=== PATIENT | female | born 1990 | race Caucasian/White ===

== ENCOUNTER 2021-07-24 02:36 | Outpatient (CLI) | payer BC, SELFPAY ==
[2021-07-24 13:12] LABS: HCT 38.3 % (36.0-46.0); HGB 12.5 g/dL (11.2-15.7); MCH 29.9 pg (27.0-33.0); MCHC 32.6 % (32.0-36.0); MCV 91.6 fL (80-95); MPV 9.5 fL (8.0-11.0); Platelet Count 251 10^3/uL (130-400); RBC 4.18 10^6/uL (3.93-5.22); RDW 12.3 % (11.7-14.6); RDW-SD 41.1 fL; WBC 7.24 10^3/uL (4.4-10.8)
[2021-07-24 14:13] LABS: ALT 19 U/L (14-59); AST 14 U/L (15-37); Alkaline Phosphatase 34 U/L (46-116); Anion Gap 9.3 mmol/L (3-11); BUN 13 mg/dL (7-18); Bilirubin, Total 0.2 mg/dL (0.2-1.0); CO2 25.7 mmol/L (21.0-32.0); CREATININE 0.7 mg/dL (0.55-1.02); Chloride 102 mmol/L (98-107); Glucose 95 mg/dL (74-106); Potassium 4.2 mmol/L (3.5-5.1); Sodium 137 mmol/L (136-145); Total Protein 7.2 g/dL (6.4-8.2)
== END 2021-07-24 02:37 | disposition home or self-care (01) ==
LOC: LBO 02:37
PROVIDERS: PCP Nurse Practitioner; Referring Provider Nurse Practitioner; Visit Provider Nurse Practitioner
DX: E28.2 Polycystic ovarian syndrome (principal); F41.9 Anxiety disorder, unspecified
CPT/HCPCS: 36415; 80053; 85027

== ENCOUNTER 2021-08-09 07:39 | Outpatient (CLI) | payer BC, SELFPAY ==
--- NOTE | 2021-08-15 12:26 | W.PM.PROGNOT ---
Date of Service Date of service: 08/09/21 Time of Service: 08:25 Assessment and Plan Assessment and plan (1) Miscarriage, threatened, early : Status: Acute Assessment and plan: 1. hcg and type and screen to be drawn 2. patient will be notified of results and plan for follow up will be made from office. Subjective Subjective Interval history since last seen: Jennyfer presents to per Eli LAMB plan with patient for lab draw as she is experiencing spotting in early and we do not have record of type and screen to see if Rhogam would be indicated. Patient is having no bleeding this morning but has been having spotting for a couple of days. She agrees to hcg and type and screen and will then be notified if Rhogam is needed. She is anxious that she might have miscarriage as she has had one in past. Exam Narrative Exam Narrative: Patient is well nourished, adult female in no acute distress. Normal respiratory effort, speaks in clear sentences and is able to understand our conversation and ask appropriate questions. No further physical exam is done today. Eyes General: appearance normal, both eyes and all related structures Neck Neck: normal visual inspection Resp Effort & Inspection: normal respiratory effort and able to speak in complete sentences Psych Appearance: grossly normal and well kempt Mental Status: mental status grossly normal Speech and Movement: speech and movement normal Mood: congruent mood Affect: normal affect Attitude: cooperative Thought Process: normal Thought Content: normal Insight: insight good Judgment: judgment good
== END 2021-08-09 07:40 | disposition home or self-care (01) ==
PROVIDERS: Advanced Practice Midwife; PCP Nurse Practitioner; Visit Provider Advanced Practice Midwife
DX: O20.0 Threatened abortion (principal)
CPT/HCPCS: 36415; 86850; 86900; 86901; 84702

== ENCOUNTER 2021-08-14 10:28 | Outpatient (REF) | payer BC, SELFPAY | END 2021-08-14 10:29 | disposition home or self-care (01) | LOC: LBN 10:28 | PROVIDERS: PCP Nurse Practitioner; Visit Provider Advanced Practice Midwife | DX: O26.851 Spotting complicating pregnancy, first trimester (principal); Z3A.01 Less than 8 weeks gestation of pregnancy | CPT/HCPCS: 87480; 87510; 87660 ==

== ENCOUNTER 2021-09-04 02:10 | Outpatient (CLI) | payer BC, SELFPAY ==
[2021-09-04 14:51] LABS: Abs Immature Grans 0.02 10^3/uL (0.0-0.06); Absolute Basophil Count 0.02 10^3/uL (0.0-0.2); Absolute Eosinophil Count 0.06 10^3/uL (0.0-0.7); Absolute Lymphocyte Count 1.93 10^3/uL (1.2-3.4); Absolute Monocyte Count 0.46 10^3/uL (0.1-0.8); Absolute Neutrophil Count 5.03 10^3/uL (1.2-6.7); Basophils % 0.3; Eosinophils % 0.8; HCT 35.9 % (36.0-46.0); Immature Grans % 0.3; Lymphocytes % 25.7; MCH 30.5 pg (27.0-33.0); MCHC 33.4 % (32.0-36.0); MCV 91 fL (80-95); MPV 9.4 fL (8.0-11.0); Monocytes % 6.1; Neutrophils % 66.8; Platelet Count 243 10^3/uL (130-400); RBC 3.94 10^6/uL (3.93-5.22); RDW 13.2 % (11.7-14.6); RDW-SD 43.6 fL; WBC 7.52 10^3/uL (4.4-10.8)
[2021-09-04 16:23] LABS: HCG Quant, Pregnancy 81755 mIU/mL (1-3)
[2021-09-05 09:06] LABS: Hepatitis B Surface Ag Negative (Negative)
[2021-09-05 09:39] LABS: Hepatitis C Ab w Rflx HCV PCR Negative (Negative)
[2021-09-05 10:59] LABS: Varicella IgG Antibody Positive (See Note)
[2021-09-05 11:05] LABS: Rubella IgG Ab (UVM) Positive (See Note)
[2021-09-05 11:58] LABS: HIV-1/2 Ag & Ab Screen Negative (Negative)
[2021-09-06 14:10] LABS: Syphilis IgG w/Reflex Nonreactive (Nonreactive)
== END 2021-09-04 02:11 | disposition home or self-care (01) ==
LOC: LBO 02:10
PROVIDERS: Advanced Practice Midwife; PCP Nurse Practitioner; Visit Provider Advanced Practice Midwife
DX: Z34.91 Encounter for supervision of normal pregnancy, unspecified, first trimester (principal); Z3A.11 11 weeks gestation of pregnancy
CPT/HCPCS: 36415; 86787; 86803; 86850; 86900; 86901; 87340; 87389; 84702; 85025; 86762; 86780

== ENCOUNTER 2021-09-04 16:36 | Outpatient (REF) | payer BC, SELFPAY ==
[2021-09-04 16:40] LABS: *AMPHETAMINES SCREEN URINE Negative (Negative); *BARBITURATES SCREEN URINE Negative (Negative); *BENZODIAZEPINES SCREEN URINE Negative (Negative); Cannabinoids THC Negative (Negative); Cocaine Screen,Urine Negative (Negative); METHADONE URINE SCREEN Negative (Negative); OPIATES URINE SCREEN Negative (Negative)
[2021-09-04 16:48] LABS: Tricyclic Antidepressants Negative (Negative)
[2021-09-07 16:39] LABS: Chlamydia Result Negative (Negative); GC Result Negative (Negative)
[2021-09-08 11:52] LABS: Buprenorphine Negative ng/mL (Cutoff: 5.0); Norbuprenorphine Negative ng/mL (Cutoff: 2.5)
== END 2021-09-04 16:37 | disposition home or self-care (01) ==
LOC: LBN 16:36
PROVIDERS: PCP Nurse Practitioner; Visit Provider Advanced Practice Midwife
DX: Z34.91 Encounter for supervision of normal pregnancy, unspecified, first trimester (principal); Z3A.09 9 weeks gestation of pregnancy
CPT/HCPCS: 80307; 87491; 87591; 87086

== ENCOUNTER 2021-11-25 07:35 | Observation (INO) | payer BC, SELFPAY ==
[2021-11-25] VITALS (11 sets, daily range): BP systolic 107–119; BP diastolic 57–68; PULSE 75–96; RESP 16–18; TEMP 36.8–37.1; O2SAT 93–100
[2021-11-25] MEDS: Normal Saline Flush 10 ML SYR IVP (08:20)
--- NOTE | 2021-11-25 08:29 | W.PM.OBHPL1 ---
Date of service: 11/25/21 Time of Service: 08:29 Assessment and Plan Assessment and plan (1) Velamentous insertion of umbilical cord: Status: Acute Assessment and plan: Documented on recent ultrasound at [facility]. (2) Previous delivery affecting , antepartum: Status: Acute (3) Bicornuate uterus: Status: Acute (4) Antepartum bleeding, second trimester: Status: Acute Assessment and plan: Single bleeding episode earlier this morning. Currently stable with small amount of dark blood tinged mucus from her cervix. No bright red blood noted on sterile speculum exam. The plan is to admit the patient for observation obtain CBC type and screen. Addendum H/H 10.9/32.9 A+. OB-HPI Labor/Delivery History of Present Illness Reason for Visit: Vaginal Bleeding at 21 wks Chief Complaint: Vaginal Bleeding (Patient awoke with painless vaginal bleeding on underclothes and on bed linens) , Associated Signs and Symptoms of Vaginal Bleeding: Recent intercourse or trauma. SADE Calculator Estimated Delivery Date Method Current WG Current Estimate 04/03/22 LMP (Certain) 21w 5d Other Estimates 04/03/22 Ultrasound #1 21w 5d 04/05/22 Ultrasound #2 21w 3d History of Present Expected Delivery Route/Plan Desires TOLAC - CNM FOB/ - Chad Walters (2nd child together) Specific Issues/Plan 1. First trimester bleeding- normal US at 6 weeks, Repeated @ 8 wk: nml 2. Bicornuate uterus- Level 2 US at [facility], sched'ed for 11/13/21 3. Left ovarian cyst-complex- asymptomatic, 3a. Hemorrhagic cyst identified at DI at 9+6 weeks. Experiencing mild discomfort 4. Hx of C/S at 33 weeks after PPROM- [facility] consult sched'ed for 11/13 4a. Desires TOLAC/; plan for 30 wk consent appt with 4b. Review operative report for NAI [place] 5. Painless mass on right breast lump, occurred when nursing first child, resolved 10/30/21 6. Hx of PCOS - metformin 500 mg BID in first trimester, then discontinued 7. Anxiety - Taking sertraline 50 mg QD - stopped Xanax with 7a. Offer behavioral health referral 8. 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 Placenta R lateral, posterior. Velamentous cord origin on uterine septum. Nl anatomy, Nl growth Review of Systems Constitutional Constitutional: Reports system reviewed and no additional complaints, except as documented PFSH All Active Problems (Updated 11/25/21 @ 08:49 by Maisha Blanchard MD) Antepartum bleeding, second trimester (Acute) Velamentous insertion of umbilical cord (Acute) Previous delivery affecting , antepartum (Acute) (Acute) PCOS (polycystic ovarian syndrome) (Acute) Anxiety (Chronic) Bicornuate uterus (Acute) Medical History (Updated 11/25/21 @ 08:49 by Maisha Blanchard MD) Breast mass R sided, nonpalpable s/p stopping , occurred when nursing first child, now recurred. Constipation History of miscarriage History of premature rupture of membranes Hypokalemia Miscarriage, threatened, early Surgical History (Updated 10/30/21 @ 13:11 by Christiana Davenport) H/O section (~02/2019) H/O hand surgery left hand History of wisdom tooth extraction Family History (Updated 07/18/21 @ 08:49 by Mercedes Traore RN) Paternal Grandfather Cancer lung Maternal Grandmother Cancer lung Lemierre syndrome Maternal Aunt Colon cancer Paternal Grandfather Lung cancer Paternal Grandmother Heart disease Mother Anxiety Father Anxiety Prediabetes Hypertension Social History (Updated 11/25/21 @ 08:48 by Maisha Blanchard MD) Smoking/Tobacco Use Status: Never Second Hand Exposure: No Smoking risk assessment performed?: Yes Alcohol Intake: current Alcohol Intake frequency: holidays/special occasions only Drug use: Never Substance use type: does not use Adopted: No Caregiver/Support person: No Foster care: No Household members: spouse, children and other Details: Shanell Stack Housing: house Number of Children: 1 number of grandchildren: 0 Communication Needs: None Education Level: college Details: Bachelor's Degree-nutrition [employer] Do you need help understanding health information?: Never 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/ Pets and animals: No Sexually active: Yes Do you think of yourself as: straight/heterosexual Current gender identity: female What is your relationship status?: How often do you talk on the phone with friends or family?: twice per week How often do you get together with friends or relatives?: never Do you belong to any clubs or organized social groups?: yes Panel score (0-1 are the most socially isolated patients): 2 What type of physical activity do you participate in: weight lifting and other Details: Stairs Duration: < 15 minutes/day Frequency: 3-4 times per week Tracy/Gnosticist: Shinto Special tracy needs: Yes (No control. Lise Ovulation Method (NFP)) Seatbelt use: always Helmet use: Yes Helmet use: always Drive intox or ride w/intox fuel oil truck driver: No Do you feel safe at home: No Do you feel safe in your relationship?: No Additional Social history: Patient and relocated from [place] secondary to housing costs. They purchased a home. She works remotely from home. He has [employer] channel. History History 2 Para 1 Hx # Term Pregnancies 0 Multiple births 0 Hx # Pregnancies 1 Ectopic pregnancies 0 AB induced 0 Hx Number of Living Children 1 AB spontaneous 1 Past Pregnancies Del. Date GA/Weeks # Preg Succ Route Wgt Sex Labor Lgth Anesthesia Location Prov Compl 02/04/19 33 No 3 lb 3 oz Male [place], [place] 03/13/21 6 Delivery Date: 02/04/19 Last Updated by: Libby Lawrence CNM PPROM, PTL, breech. separation of membranes from uterine lining Delivery Date: 03/13/21 Last Updated by: Rose Mariscal NP SAB Meds Allergies and Home Medications Allergies Allergy/AdvReac Type Severity Reaction Status Date / Time tazarotene [From Tazorac] Allergy Verified 10/30/21 12:39 Home Medications Medication Instructions Recorded Confirmed Type prenat.vits,eddie,bht-gnfv-rcwfb 1 tab PO DAILY 06/18/21 11/25/21 History sertraline 50 mg tablet 50 mg PO DAILY #90 tabs 07/18/21 11/25/21 Rx polyethylene glycol 3350 17 17 g PO DAILY #119 grams 10/02/21 11/25/21 Rx gram/dose oral powder (Miralax) Exam Physical Exam Vital signs: Pulse BP Pulse Ox 80 119/67 100 11/25/21 08:05 11/25/21 07:53 11/25/21 08:05 Vital Signs Reviewed: Yes Constitutional Constitutional: no acute distress Detailed Labor and Delivery Exam Dilation: 0 Effacement (%): 0 station: -3 Position: Other (variable) Cervix position: mid (displaced to R ) Consistency: firm Krishnamurthy Score: Cervical Points Exam 0 1 2 3 Dilation Closed 1-2cm 3-4 cm 5-6cm Effacement 0-30% 40-50% 60-70% 80% Consistency Firm Medium Soft Station -3 -2 -1,0 +1,+2 Position Posterior Mid Anterior KRISHNAMURTHY Score(Cervical Ripeness Score): 2 Amniotic Membrane Status: Intact ROM Plus: Not Done Monitor Mode: External Contraction Frequency(min): none Fetus A Heart Rate Baseline: 150 Presentation: Other (variable) Assessment Note: heart tones evaluated by ultrasound Doppler on admission. Bedside ultrasound performed confirming viability cervix is long closed. Subjectively adequate amniotic fluid Chest/Brest/Axilla Exam Chest Exam: Not Done Breast Exam Breast Exam: Not Done Respiratory Exam Respiratory Exam: Normal Cardiovascular Exam Cardiovascular Exam: Normal Abdominal Exam Abdominal Exam: Normal (Soft, gravid, nontender) Rectal Exam Rectal Exam: Not Done Detailed Exam Patient deferred: external exam External: Present normal urethra appearance Perineum Description: Normal (Blood tinged mucus on perineum) Comments: Sterile speculum exam performed. Kalida/brown blood-tinged mucus present at the cervical os. Bedside ultrasound performed no evidence of placental abruption. Viable IUP with variable presentation Extremities Exam Extremities Exam: Normal Back/Spine/Pelvis Exam Back Exam: Normal Skin Exam Skin Exam: Normal Neurological Exam Neurological Exam: Normal Psychiatric Exam Psychiatric Exam: Normal Results Results Group Beta Strep: Not Done Risk Assessment Risk for Shoulder Dystocia Historical/Initial OB: NEGATIVE FOR: Pelvic Abnormality, Pre- BMI>30, Previous Shoulder Dystocia or Previous Macrosomia Risk for Pre-Eclampsia Yes, if one or more: NEGATIVE FOR: Hx Pre-E/Gest HTN, Chronic HTN, Multiple Gestation, Pre-gestational DM, Renal Disease, Systemic Lupus or APA Syndrome Yes, if 2 or more: NEGATIVE FOR: Nulliparity, Age>= 35 yrs, >10yr btwn pregnancies, BMI>30, ethinicty, Mother/Sister w/ Pre-E or Previous IUGR Risk for Post- Hemorrhage Initial: NEGATIVE FOR: Multiple Gestation, Previous PPH, Known Clotting Deficiency, Grand Multiparity or Anticoagulation Risks Reviewed Risks Reviewed Upon Admission: Yes
[2021-11-25] MEDS: Prenatal Multivitamin w/CA,FE TAB 1 TAB PO (08:41)
[2021-11-25] MEDS: Sertraline 50 MG TAB PO (08:41)
[2021-11-25 08:46] LABS: HCT 32.9 % (36.0-46.0); HGB 10.9 g/dL (11.2-15.7); MCH 31.4 pg (27.0-33.0); MCHC 33.1 % (32.0-36.0); MCV 95 fL (80-95); MPV 9.2 fL (8.0-11.0); Platelet Count 247 10^3/uL (130-400); RBC 3.47 10^6/uL (3.93-5.22); RDW 13.2 % (11.7-14.6); RDW-SD 45.8 fL; WBC 10.78 10^3/uL (4.4-10.8)
[2021-11-25 08:57] LABS: Source Nasal/Nares
[2021-11-25 09:02] LABS: ALT 16 U/L (14-59); AST 14 U/L (15-37); Albumin 2.6 g/dL (3.4-5.0); Alkaline Phosphatase 36 U/L (46-116); Anion Gap 7.3 mmol/L (3-11); BUN 8 mg/dL (7-18); Bilirubin, Total 0.2 mg/dL (0.2-1.0); CO2 26.7 mmol/L (21.0-32.0); CREATININE 0.5 mg/dL (0.55-1.02); Calcium 8.3 mg/dL (8.5-10.1); Chloride 104 mmol/L (98-107); Glucose 85 mg/dL (74-106); Potassium 3.8 mmol/L (3.5-5.1); Sodium 138 mmol/L (136-145); Total Protein 6.4 g/dL (6.4-8.2)
[2021-11-25 09:49] LABS: COVID-19 PCR Negative (Negative)
[2021-11-26 02:53] VITALS: BP 105/65; BP 105/75; PULSE 67; RESP 18
[2021-11-26 07:15] VITALS: BP 108/67; PULSE 77; RESP 141; TEMP 36.9
[2021-11-26] MEDS: Sertraline 50 MG TAB PO (08:47)
[2021-11-26] MEDS: Prenatal Multivitamin w/CA,FE TAB 1 TAB PO (08:48)
--- NOTE | 2021-11-26 09:19 | PGE_ITS ---
Date of Service Date of service: 11/26/21 Time of Service: 09:19 Assessment and Plan Assessment and plan (1) Antepartum bleeding, second trimester: Status: Acute Assessment and plan: I have placed a call into [facility] for advice as to plan of care. (2) Velamentous insertion of umbilical cord: Status: Acute Exam Narrative Exam Narrative: Pt reports no cramping during the night. Had one clot last evening, flushed into toilet. 4 randa-pads used during the night. Const General: comfortable Nutritional Appearance: average body habitus Orientation: alert, awake and oriented x3 Resp Effort & Inspection: normal respiratory effort GI Inspection: normal to inspection Palpation: soft, no hepatosplenomegaly, nontender and other (gravid.) General: deferred (Intermittent FHR auscultation during the night: FHR 140 range.) Skin General skin exam: no rashes or lesions noted Extrem General: normal to inspection Objective Last Vital Signs Temp 98.4 F 11/26/21 07:15 Pulse 77 11/26/21 07:15 Resp 141 H 11/26/21 07:15 BP 108/67 11/26/21 07:15 Pulse Ox 93 11/25/21 14:53 Laboratory Results - last 24 hr 11/25/21 11/25/21 08:38 08:45 SARS-CoV-2 (PCR) Negative Patient ABO/Rh A Positive Antibody Screen NEGATIVE Reviewed Pertinent PMH: Yes Objective Narrative Objective Narrative: Bleeding during the night. While not copious it remains constant with 4 unsaturated pads changed during the night
--- NOTE | 2021-11-26 11:06 | W.PM.PROGNOT ---
Date of Service Date of service: 11/26/21 Time of Service: 11:06 Assessment and Plan Assessment and plan (1) Antepartum bleeding, second trimester: Status: Acute Assessment and plan: After discussing the patient's bleeding this morning I called [facility] maternal- medicine department spoke with Dr. Clemons regarding pt's bleeding We discussed the fact that this fetus is previable and if she were to become a critical patient we would proceed with delivery knowing that the fetus would not survive at 21w 5d EGA. I reviewed the [facility] images with Dr. Schrader. The placenta is not low-lying and is not involvement with the uterine septum. The velamentous umbilical cord is present and is proximity to the uterine septum/wall. There arose the question of there being a uterine synechiae in proximity to the umbilcal cord. Plan is to proceed with expectant management at this time. Pt was counseled by me regarding the plan going forward. Will begin supplemental daily iron and continue pad counts. She will be discharged to home tomorrow if stable and followed on a weekly basis or as needed in the event of increased uterine bleeding. (2) Velamentous insertion of umbilical cord: Status: Acute Objective Last Vital Signs Temp 98.4 F 11/26/21 07:15 Pulse 77 11/26/21 07:15 Resp 141 H 11/26/21 07:15 BP 108/67 11/26/21 07:15 Pulse Ox 93 11/25/21 14:53
[2021-11-26 16:05] VITALS: BP 106/69; PULSE 90; RESP 18; TEMP 36.7; O2SAT 98
[2021-11-26 19:30] VITALS: BP 100/59; PULSE 67; RESP 18; TEMP 36.9
[2021-11-27 01:52] VITALS: BP 108/65; PULSE 69; RESP 18
[2021-11-27 07:45] VITALS: BP 109/72; PULSE 85; RESP 14; TEMP 37
--- NOTE | 2021-11-27 08:16 | DSE_ITS ---
Date of service: 11/27/21 Time of Service: 08:16 DS: Diagnosis Discharge Diagnosis (1) Antepartum bleeding, second trimester: Status: Acute (2) Velamentous insertion of umbilical cord: Status: Acute Discharge Plan Disposition Patient Disposition: HOME Condition: Fair Discharge Details Reason For Visit: Vaginal Bleeding at 21 wks Admit Date/Time: 11/25/21 07:35 Admit Provider: Maisha Blanchard Attending Provider: Maisha Blanchard Primary Care Provider: Anaid Reynoso [facility] Course Hospital Course: Patient is a 31-year-old 2 para 1 female admitted with vaginal bleeding at 21W 4D EGA Home Meds and New Rx's Prescriptions: No Action sertraline 50 mg tablet 50 mg PO DAILY Qty: 90 3RF polyethylene glycol 3350 [Miralax] 17 gram/dose powder 17 g PO DAILY Qty: 119 5RF prenat.vits,eddie,zxl-gwlp-oqvja Tablet 1 tab PO DAILY Discharge Instructions Additional Instructions: You may resume your usual activities. I recommended no sexual intercourse for the time being. Begin taking 1 dose of iron daily. I will prescribe a easily swallowed or liquid iron supplement that she can sheepskin pickler at your pharmacy. An appointment for an MD visit [facility]. Using cancel your supervisor nuclear medicine appointment for today. You will continue to have bleeding and I think that the amount of bleeding that you have had recently is an acceptable level for you to stay home with now that we know more about where your placenta is. If you have cramping or pain please call the MD on-call at any time. Activity:: No intercourse Equipment/Supplies:: No Equipment Needed Diet:: As Tolerated Discharge Orders Discharge Orders: Discharge Order (Routine); Ordered 11/27/21 Ordered By: Maisha Blanchard DS: Summary Time Spent with Patient providing and/or coordinating discharge services: Less than 30 minutes Status at Discharge Functional status at discharge: independent ambulation Overall status at discharge: patient is back to baseline Mental Status: mental status grossly normal Speech and Movement: speech and movement normal Mood: congruent mood Affect: normal affect Exam Narrative Exam Narrative: Pt reports no cramping during the night. Had one clot last evening, flushed into toilet. 4 randa-pads used during the night. Const General: comfortable Nutritional Appearance: average body habitus Orientation: alert, awake and oriented x3 Resp Effort & Inspection: normal respiratory effort GI Inspection: normal to inspection Palpation: soft, no hepatosplenomegaly, nontender and other (gravid.) General: deferred (Intermittent FHR auscultation during the night: FHR 140 range.) Skin General skin exam: no rashes or lesions noted Extrem General: normal to inspection Psych Mental Status: mental status grossly normal Speech and Movement: speech and movement normal Mood: congruent mood Affect: normal affect DS: Data Vitals/I&O Vitals and I&O: Vital Signs Temperature 98.4 F 11/26/21 19:30 Pulse 69 11/27/21 01:52 Pulse Rhythm Regular 11/26/21 19:30 Respiratory Rate 18 11/27/21 01:52 Blood Pressure 108/65 11/27/21 01:52 Blood Pressure Mean 79 11/27/21 01:52 Pulse Oximetry 98 11/26/21 16:05 Comment 11/25/21 07:49 Intake & Output 11/26/21 11/26/21 11/27/21 11:59 23:59 11:59 Intake Total 740 / 1340 600 / 1340 550 / 550 Output Total 800 / 3005 2205 / 3005 850 / 850 Balance -60 / -1665 -1605 / -1665 -300 / -300 Intake: Oral 740 / 1340 600 / 1340 550 / 550 Output: Urine 800 / 3000 2200 / 3000 850 / 850 Blood 5 / 5 Other: Urine Color Yellow Pale PFSH All Active Problems (Updated 11/25/21 @ 08:49 by Maisha Blanchard MD) Antepartum bleeding, second trimester (Acute) Velamentous insertion of umbilical cord (Acute) Previous delivery affecting , antepartum (Acute) (Acute) PCOS (polycystic ovarian syndrome) (Acute) Anxiety (Chronic) Bicornuate uterus (Acute) Medical History (Updated 11/25/21 @ 08:49 by Maisha Blanchard MD) Breast mass R sided, nonpalpable s/p stopping , occurred when nursing first child, now recurred. Constipation History of miscarriage History of premature rupture of membranes Hypokalemia Miscarriage, threatened, early Surgical History (Updated 10/30/21 @ 13:11 by Christiana Davenport) H/O section (~02/2019) H/O hand surgery left hand History of wisdom tooth extraction Family History (Updated 07/18/21 @ 08:49 by Mercedes Traore RN) Paternal Grandfather Cancer lung Maternal Grandmother Cancer lung Lemierre syndrome Maternal Aunt Colon cancer Paternal Grandfather Lung cancer Paternal Grandmother Heart disease Mother Anxiety Father Anxiety Prediabetes Hypertension Social History (Updated 11/25/21 @ 08:48 by Maisha Blanchard MD) Smoking/Tobacco Use Status: Never Second Hand Exposure: No Smoking risk assessment performed?: Yes Alcohol Intake: current Alcohol Intake frequency: holidays/special occasions only Drug use: Never Substance use type: does not use Adopted: No Caregiver/Support person: No Foster care: No Household members: spouse, children and other Details: Shanell Stack Housing: house Number of Children: 1 number of grandchildren: 0 Communication Needs: None Education Level: college Details: Bachelor's Degree-nutrition [employer] Do you need help understanding health information?: Never 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/ Pets and animals: No Sexually active: Yes Do you think of yourself as: straight/heterosexual Current gender identity: female What is your relationship status?: How often do you talk on the phone with friends or family?: twice per week How often do you get together with friends or relatives?: never Do you belong to any clubs or organized social groups?: yes Panel score (0-1 are the most socially isolated patients): 2 What type of physical activity do you participate in: weight lifting and other Details: Stairs Duration: < 15 minutes/day Frequency: 3-4 times per week Tracy/Sikh: Moravian Special tracy needs: Yes (No control. Herrick Ovulation Method (NFP)) Seatbelt use: always Helmet use: Yes Helmet use: always Drive intox or ride w/intox automobile drivers: No Do you feel safe at home: No Do you feel safe in your relationship?: No Additional Social history: Patient and relocated from [place] secondary to housing costs. They purchased a home. She works remotely from home. He has [employer] channel. History History 2 Para 1 Hx # Term Pregnancies 0 Multiple births 0 Hx # Pregnancies 1 Ectopic pregnancies 0 AB induced 0 Hx Number of Living Children 1 AB spontaneous 1 Past Pregnancies Del. Date GA/Weeks # Preg Succ Route Wgt Sex Labor Lgth Anesth esia Location Prov Complic 02/04/19 33 No 3 lb 3 oz Male [place], [place] 03/13/21 6 Delivery Date: 02/04/19 Last Updated by: Libby Lawrence CNM PPROM, PTL, breech. separation of membranes from uterine lining Delivery Date: 03/13/21 Last Updated by: Rose Mariscal NP SAB
== END 2021-11-27 09:05 | disposition home or self-care (01) ==
LOC: OBS 15:26
PROVIDERS: Admitting Provider Obstetrics & Gynecology Gynecology; PCP Nurse Practitioner; Visit Provider Obstetrics & Gynecology Gynecology
DX: O46.92 Antepartum hemorrhage, unspecified, second trimester (principal); O43.122 Velamentous insertion of umbilical cord, second trimester; O34.212 Maternal care for vertical scar from previous cesarean delivery; Q51.3 Bicornate uterus; Z3A.21 21 weeks gestation of pregnancy; O99.282 Endocrine, nutritional and metabolic diseases complicating pregnancy, second trimester; E28.2 Polycystic ovarian syndrome; O99.342 Other mental disorders complicating pregnancy, second trimester; O34.219 Maternal care for unspecified type scar from previous cesarean delivery; N85.8 Other specified noninflammatory disorders of uterus
CPT/HCPCS: 36415; 80053; 85027; 86850; 86900; 86901; 87635; G0378

== ENCOUNTER 2021-12-17 08:18 | Observation (INO) | payer BC, SELFPAY ==
[2021-12-17 06:39] VITALS: BP 116/69; PULSE 84; RESP 18; TEMP 36.6
[2021-12-17 07:21] VITALS: BP 108/64; PULSE 83
[2021-12-17 07:36] VITALS: BP 108/64; PULSE 83; RESP 12; TEMP 36.8
--- NOTE | 2021-12-17 08:05 | HPE_ITS ---
Date of service: 12/17/21 Time of Service: 08:05 Assessment and Plan Assessment and plan (1) Antepartum bleeding, second trimester: Status: Acute Assessment and plan: Second bleeding episode this . Plan at this time is to admit for observation obtain a CBC type and screen and assist patient with participating in her telemedicine visit with [facility] this afternoon. We will continue evaluation of amount of uterine bleeding throughout the day. OB-HPI Labor/Delivery History of Present Illness Reason for Visit: Vaginal bleeding Chief Complaint: Other (Painless vaginal bleeding saturating peripads upon awakening this morning). SADE Calculator Estimated Delivery Date Method Current WG Current Estimate 04/03/22 LMP (Certain) 24w 5d Other Estimates 04/03/22 Ultrasound #1 24w 5d 04/05/22 Ultrasound #2 24w 3d Comments: Patient is a 31-year-old G2, P1 female currently 24W 5D EGA with a known mullerian anomaly and previous admission at the center on 11/25/2021 for an episode of uterine bleeding. She had been doing well after that visit with no further episodes of bleeding no reported uterine cramping. She is scheduled for a telemedicine visit with maternal aunt and at noon today. Patient reports awakening this morning with a peripads saturated with bright red blood and passing 1 clot. By the time she reached the hospital her bleeding had subsided and there is a slight staining on her peripad. Patient was evaluated at [facility] 11/13/21 for hx of mullerian anomaly. Placenta R lateral, posterior. Velamentous cord origin on uterine septum. Nl anatomy, Nl growth History of Present Expected Delivery Route/Plan Desires TOLAC - CNM FOB/ - Chad Romeo (2nd child together) Specific Issues/Plan 1. 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 Uterine bleeding. Overnight hospitalization for evaluation. Bleeding subsided spontaneously. Known to [facility] at [facility] 2. Velamentous cord insertion noted at [facility] sono 11/13/21 3. Left ovarian cyst-complex- asymptomatic, 3a. Hemorrhagic cyst identified at DI at 9+6 weeks. Experiencing mild discomfort 4. Prior C/S at 33 weeks after PPROM 4a. Desires TOLAC/; plan for 30 wk consent appt with 4b. Review operative report for bicornate, LTAMARA 5. Hx PPROM @33wks 6. Hx of PCOS - metformin 500 mg BID in first trimester, then discontinued 7. Anxiety - Taking sertraline 50 mg QD - stopped Xanax with 7a. Offer behavioral health referral 8. FOB - migraines, schizophrenia, no medications currently Informed Consent Informed Consent: Other (Observation on the center) Review of Systems Narrative: As above. 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 All systems reviewed & are unremarkable except as noted in HPI and below PFSH All Active Problems (Updated 11/25/21 @ 08:49 by Maisha Blanchard MD) Antepartum bleeding, second trimester (Acute) Velamentous insertion of umbilical cord (Acute) Previous delivery affecting , antepartum (Acute) (Acute) PCOS (polycystic ovarian syndrome) (Acute) Anxiety (Chronic) Bicornuate uterus (Acute) Medical History (Updated 11/25/21 @ 08:49 by Maisha Blanchard MD) Breast mass R sided, nonpalpable s/p stopping , occurred when nursing first child, now recurred. Constipation History of miscarriage History of premature rupture of membranes Hypokalemia Miscarriage, threatened, early Surgical History (Updated 10/30/21 @ 13:11 by Christiana Davenport) H/O section (~02/2019) H/O hand surgery left hand History of wisdom tooth extraction Family History (Updated 07/18/21 @ 08:49 by Mercedes Traore RN) Paternal Grandfather Cancer lung Maternal Grandmother Cancer lung Lemierre syndrome Maternal Aunt Colon cancer Paternal Grandfather Lung cancer Paternal Grandmother Heart disease Mother Anxiety Father Anxiety Prediabetes Hypertension Social History (Updated 11/25/21 @ 08:48 by Maisha Blanchard MD) Smoking/Tobacco Use Status: Never Second Hand Exposure: No Smoking risk assessment performed?: Yes Alcohol Intake: current Alcohol Intake frequency: holidays/special occasions only Drug use: Never Substance use type: does not use Adopted: No Caregiver/Support person: No Foster care: No Household members: spouse, children and other Details: Shanell Stack Housing: house Number of Children: 1 number of grandchildren: 0 Communication Needs: None Education Level: college Details: Bachelor's Degree-nutrition [employer] Do you need help understanding health information?: Never current occupation: [employer]/ Pets and animals: No Sexually active: Yes Do you think of yourself as: straight/heterosexual Current gender identity: female What is your relationship status?: How often do you talk on the phone with friends or family?: twice per week How often do you get together with friends or relatives?: never Do you belong to any clubs or organized social groups?: yes Panel score (0-1 are the most socially isolated patients): 2 What type of physical activity do you participate in: weight lifting and other Details: Stairs Duration: < 15 minutes/day Frequency: 3-4 times per week Tracy/Gnosticism: Taoist Special tracy needs: Yes (No control. [place] Ovulation Method (NFP)) Seatbelt use: always Helmet use: Yes Helmet use: always Drive intox or ride w/intox steam train driver: No Do you feel safe at home: No Do you feel safe in your relationship?: No Additional Social history: Patient and relocated from [place] secondary to housing costs. They purchased a home. She works remotely from home. He has [employer] channel. History History 2 Para 1 Hx # Term Pregnancies 0 Multiple births 0 Hx # Pregnancies 1 Ectopic pregnancies 0 AB induced 0 Hx Number of Living Children 1 AB spontaneous 1 Past Pregnancies Del. Date GA/Weeks # Preg Succ Route Wgt Sex Labor Lgth [facility]esth [facility]19 33 No 3 lb 3 oz Male [place] 03/13/21 6 Delivery Date: 02/04/19 Last Updated by: Libby Lawrence CNM PPROM, PTL, breech. separation of membranes from uterine lining Delivery Date: 03/13/21 Last Updated by: Rose Mariscal NP SAB Meds Allergies and Home Medications Allergies Allergy/AdvReac Type Severity Reaction Status Date / Time tazarotene [From Tazorac] Allergy Verified 12/13/21 15:19 Home Medications Medication Instructions Recorded Confirmed Type prenat.vits,eddie,fdf-dmic-emgkp 1 tab PO DAILY 06/18/21 12/03/21 History sertraline 50 mg tablet 50 mg PO DAILY #90 tabs 07/18/21 12/03/21 Rx polyethylene glycol 3350 17 17 g PO DAILY #119 grams 10/02/21 12/03/21 Rx gram/dose oral powder (Miralax) iron, carbonyl 18 mg iron chewable 18 mg PO DAILY 12/03/21 12/03/21 History tablet (Ferretts Carbonyl Iron) Exam Physical Exam Vital signs: Temp Pulse Resp BP 98.2 F 83 12 108/64 12/17/21 07:36 12/17/21 07:36 12/17/21 07:36 12/17/21 07:36 Vital Signs Reviewed: Yes Constitutional Constitutional: no acute distress Detailed Labor and Delivery Exam Dilation: 0 Effacement (%): 0 station: -4 Cervix position: anterior Consistency: firm Umanzor Score: Cervical Points Exam 0 1 2 3 Dilation Closed 1-2cm 3-4 cm 5-6cm Effacement 0-30% 40-50% 60-70% 80% Consistency Firm Medium Soft Station -3 -2 -1,0 +1,+2 Position Posterior Mid Anterior Amniotic Membrane Status: Intact Contraction Frequency(min): None Fetus A Heart Rate Baseline: 150 Monitor Accelerations: 10 X 10 (Apical views to assess heart rate every 4 hours) Respiratory Exam Respiratory Exam: Normal Cardiovascular Exam Cardiovascular Exam: Normal Abdominal Exam Abdominal Exam: Normal (Appropriate fundal height. focal uterine tenderness right lower quadrant.) Rectal Exam Rectal Exam: Not Done Exam Exam: Abnormal (Sterile spec) Detailed Exam Patient deferred: external exam External: Present normal urethra appearance Comments: Sterile speculum exam: Brown-red blood in the vaginal vault. Bright red blood present cervical os. Bleeding is light in amount. Bimanual exam performed the uterus is nontender and cervix is closed. Extremities Exam Extremities Exam: Normal Back/Spine/Pelvis Exam Back Exam: Not Done Skin Exam Skin Exam: Normal Neurological Exam Neurological Exam: Normal Psychiatric Exam Psychiatric Exam: Normal Risk Assessment Risk for Shoulder Dystocia Historical/Initial OB: NEGATIVE FOR: Pelvic Abnormality, Pre- BMI>30, Previous Shoulder Dystocia or Previous Macrosomia Risk for Pre-Eclampsia Yes, if one or more: NEGATIVE FOR: Hx Pre-E/Gest HTN, Chronic HTN, Multiple Gestation, Pre-gestational DM, Renal Disease, Systemic Lupus or APA Syndrome Yes, if 2 or more: NEGATIVE FOR: Nulliparity, Age>= 35 yrs, >10yr btwn pregn ancies, BMI>30, ethinicty, Mother/Sister w/ Pre-E or Previous IUGR Risk for Post- Hemorrhage Initial: NEGATIVE FOR: Multiple Gestation, Previous PPH, Known Clotting Deficiency, Grand Multiparity or Anticoagulation Risks Reviewed Risks Reviewed Upon Admission: Yes
[2021-12-17 08:49] LABS: HCT 33.8 % (36.0-46.0); HGB 11.2 g/dL (11.2-15.7); MCH 31.7 pg (27.0-33.0); MCHC 33.1 % (32.0-36.0); MCV 96 fL (80-95); MPV 9.3 fL (8.0-11.0); Platelet Count 274 10^3/uL (130-400); RBC 3.53 10^6/uL (3.93-5.22); RDW 14.1 % (11.7-14.6); RDW-SD 49.4 fL
[2021-12-17 11:14] VITALS: BP 109/59; PULSE 78; RESP 16; TEMP 36.7
--- NOTE | 2021-12-17 12:21 | NUR.NOTE ---
out of pt room, just informed RN that [facility] would like to transfer pt Nursing Note:
--- NOTE | 2021-12-17 12:23 | NUR.NOTE ---
pt reported she still has bright red spotting on pad. RN was able to observe spotting on pad. Nursing Note:
--- NOTE | 2021-12-17 12:31 | W.PM.OBDISCH ---
Date of service: 12/17/21 Time of Service: 12:31 DS: Diagnosis Discharge Diagnosis (1) Antepartum bleeding, second trimester: Start date: 12/17/21 Start time: :31 Status: Acute Asessment and Plan: Patient was admitted to the center this morning with report of episode of painless bright red blood per vagina. She had similar episode approximately a month ago resolved after 24 hours. Patient has had no will bright red blood from her vagina but episodes of spotting brown discharge on a daily basis since her initial bleeding episode. She was scheduled for a maternal- medicine telemetry medicine visit at 12 noon today. She had the telemedicine visit in her hospital room and Dr. Clemons, telemedicine provider recommended transfer to [facility] for observation. Patient was agreeable to the plan. The plan is to administer betamethasone 12 mg IM and begin an IV prior to her sport. Maternal- medicine transport center was contacted and has accepted the patient transfer with Dr. Schrader is the attending provider. Discharge Plan Disposition Patient Disposition: [facility] Condition: Fair Discharge Details Reason For Visit: IUP at 24W 5D EGA with Uterine Bleeding Admit Date/Time: 12/17/21 08:18 Admit Provider: Maisha Blanchard Attending Provider: Maisha Blanchard Primary Care Provider: Anaid Reynoso Hospital Course Hospital Course: Patient was admitted to the center with a new episode of bright red uterine bleeding that saturated a peripads early this morning. Patient reported some mild uterine cramping on the left side at the time of the bleeding episode this has been similar to other episodes of uterine cramping she has experienced without uterine bleeding. She was admitted to the center for observation since her presentation to the center she has had light pink spotting on her peripads but no saturation of her peripads. A speculum exam and digital vaginal exam showed closed cervix firm long with a not well-developed lower uterine segment presenting part was nonpalpable there was bright red blood at the cervical os. A previously scheduled telemedicine visit with Dr. Clemons was carried out in the patient's hospital room. I was present for the discussion and decision was made to transfer the patient to the maternal- medicine service via ambulance. She will receive 12 mg of Celestone prior to departure. Home Meds and New Rx's Prescriptions: No Action sertraline 50 mg tablet 50 mg PO DAILY Qty: 90 3RF polyethylene glycol 3350 [Miralax] 17 gram/dose powder 17 g PO DAILY Qty: 119 5RF Ferretts Carbonyl Iron 18 mg iron tablet,chewable 18 mg PO DAILY prenat.vits,eddie,gpt-ccuw-ratxg Tablet 1 tab PO DAILY Discharge Instructions Activity:: Transferred via ambulance Equipment/Supplies:: No Equipment Needed Diet:: As Tolerated OB:DS Summary Contraception Discussed Contraception Discussed: No, Status at Discharge Functional status at discharge: independent ambulation Overall status at discharge: patient is not back to baseline Mental Status: mental status grossly normal Speech and Movement: speech and movement normal Mood: congruent mood Affect: normal affect Exam Physical Exam Vital signs: Temp Pulse Resp BP 98.1 F 78 16 109/59 L 12/17/21 11:14 12/17/21 11:14 12/17/21 11:14 12/17/21 11:14 Constitutional Constitutional: no acute distress HEENT Exam HEENT Exam: Normal (Patient wears eyeglasses) Neck Exam Neck Exam: Normal Respiratory Exam Respiratory Exam: Normal Cardiovascular Exam Cardiovascular Exam: Normal Abdominal Exam Abdomen: Tender (Subjective tenderness left side. No focal tenderness with palpation) Fundal Exam Fundus: Firm Rectal Exam Rectal Exam: Not Done Extremities Exam Extremity Exam: Normal Back/Spine/Pelvis Exam Back Exam: Normal Skin Exam Skin Exam: Normal Neurological Exam Neurological Exam: Normal Psychiatric Exam Psychiatric Exam: Normal PFSH All Active Problems (Updated 11/25/21 @ 08:49 by Maisha Blanchard MD) Antepartum bleeding, second trimester (Acute) Velamentous insertion of umbilical cord (Acute) Previous delivery affecting , antepartum (Acute) (Acute) PCOS (polycystic ovarian syndrome) (Acute) Anxiety (Chronic) Bicornuate uterus (Acute) Medical History (Updated 11/25/21 @ 08:49 by Maisha Blanchard MD) Breast mass R sided, nonpalpable s/p stopping , occurred when nursing first child, now recurred. Constipation History of miscarriage History of premature rupture of membranes Hypokalemia Miscarriage, threatened, early Surgical History (Updated 10/30/21 @ 13:11 by Christiana Davenport) H/O section (~02/2019) H/O hand surgery left hand History of wisdom tooth extraction Family History (Updated 07/18/21 @ 08:49 by Mercedes Traore RN) Paternal Grandfather Cancer lung Maternal Grandmother Cancer lung Lemierre syndrome Maternal Aunt Colon cancer Paternal Grandfather Lung cancer Paternal Grandmother Heart disease Mother Anxiety Father Anxiety Prediabetes Hypertension Social History (Updated 11/25/21 @ 08:48 by Maisha Blanchard MD) Smoking/Tobacco Use Status: Never Second Hand Exposure: No Smoking risk assessment performed?: Yes Alcohol Intake: current Alcohol Intake frequency: holidays/special occasions only Drug use: Never Substance use type: does not use Adopted: No Caregiver/Support person: No Foster care: No Household members: spouse, children and other Details: Shanell Stack Housing: house Number of Children: 1 number of grandchildren: 0 Communication Needs: None Education Level: college Details: Bachelor's Degree-nutrition [employer] Do you need help understanding health information?: Never 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/ Pets and animals: No Sexually active: Yes Do you think of yourself as: straight/heterosexual Current gender identity: female What is your relationship status?: How often do you talk on the phone with friends or family?: twice per week How often do you get together with friends or relatives?: never Do you belong to any clubs or organized social groups?: yes Panel score (0-1 are the most socially isolated patients): 2 What type of physical activity do you participate in: weight lifting and other Details: Stairs Duration: < 15 minutes/day Frequency: 3-4 times per week Tracy/Episcopal: Baptism Special tracy needs: Yes (No control. [place] Ovulation Method (NFP)) Seatbelt use: always Helmet use: Yes Helmet use: always Drive intox or ride w/intox truss driver helper: No Do you feel safe at home: No Do you feel safe in your relationship?: No Additional Social history: Patient and relocated from [place] secondary to housing costs. They purchased a home. She works remotely from home. He has [employer] channel. History History 2 Para 1 Hx # Term Pregnancies 0 Multiple births 0 Hx # Pregnancies 1 Ectopic pregnancies 0 AB induced 0 Hx Number of Living Children 1 AB spontaneous 1 Past Pregnancies Del. Date GA/Weeks # Preg Succ Route Wgt Sex Labor Lgth Anesthesia Location Prov Complic 02/04/19 33 No 3 lb 3 oz Male [facility] [place] 03/13/21 6 Delivery Date: 02/04/19 Last Updated by: Libby Lawrence CNM PPROM, PTL, breech. separation of membranes from uterine lining Delivery Date: 03/13/21 Last Updated by: Rose Mariscal NP SAB DS: Data Vitals/I&O Vitals and I&O: Vital Signs Temperature 98.1 F 12/17/21 11:14 Temperature Source Oral 12/17/21 06:39 Pulse 78 12/17/21 11:14 Pulse Rhythm Regular 12/17/21 09:28 Respiratory Rate 16 12/17/21 11:14 Respiratory Effort 12/17/21 07:36 Respiratory Depth Normal 12/17/21 07:36 Respiratory Pattern Normal 12/17/21 07:36 Blood Pressure 109/59 L 12/17/21 11:14 Blood Pressure Mean 78 12/17/21 07:36 Pain Level 0 12/17/21 11:14 Comment 12/17/21 09:28 Intake & Output 12/16/21 12/17/21 12/17/21 23:59 11:59 23:59 Output Total 800 / 1100 300 / 1100 Balance -800 / -1100 -300 / -1100 Weight 128 lb Output: Urine 800 / 1100 300 / 1100 Other: Urine Color Yellow Urine Appearance Clear Data Completed and Pending Labs on day of discharge: Labs from last 24 hours 12/17/21 12/17/21 08:33 08:33 WBC 10.40 RBC 3.53 L Hgb 11.2 Hct 33.8 L MCV 96 H MCH 31.7 MCHC 33.1 RDW 14.1 Plt Count 274 MPV 9.3 Patient ABO/Rh A Positive Antibody Screen NEGATIVE
[2021-12-17] MEDS: Betamet Acet/Betamet Na Ph Inj. 30 MG/5 ML 12 MG IM (12:46)
[2021-12-17] MEDS: Lactated Ringers 1,000 ML 50 ML IV (13:08)
[2021-12-17 13:11] VITALS: BP 116/57; PULSE 79; RESP 16; TEMP 36.8
--- NOTE | 2021-12-17 13:42 | NUR.NOTE ---
pt ready for transport. waiting on ambulance to get hereNursing Note:
== END 2021-12-17 14:00 | disposition short-term general hospital (02) ==
PROVIDERS: Admitting Provider Obstetrics & Gynecology Gynecology; PCP Nurse Practitioner; Visit Provider Obstetrics & Gynecology Gynecology
DX: O46.8X2 Other antepartum hemorrhage, second trimester (principal); Z3A.24 24 weeks gestation of pregnancy; O43.122 Velamentous insertion of umbilical cord, second trimester; O34.02 Maternal care for unspecified congenital malformation of uterus, second trimester; Q51.3 Bicornate uterus; O34.211 Maternal care for low transverse scar from previous cesarean delivery; N85.8 Other specified noninflammatory disorders of uterus; O99.342 Other mental disorders complicating pregnancy, second trimester; O99.282 Endocrine, nutritional and metabolic diseases complicating pregnancy, second trimester; E28.2 Polycystic ovarian syndrome; F41.9 Anxiety disorder, unspecified
CPT/HCPCS: 85027; 86850; 86900; 86901; 96372; G0378; J0702; J3490

== ENCOUNTER 2022-04-02 13:01 | Outpatient (CLI) | payer BC, SELFPAY ==
[2022-04-02 12:41] LABS: HCT 37.6 % (36.0-46.0); HGB 12.3 g/dL (11.2-15.7); MCH 29.9 pg (27.0-33.0); MCHC 32.7 % (32.0-36.0); MCV 91 fL (80-95); MPV 8.9 fL (8.0-11.0); Platelet Count 266 10^3/uL (130-400); RBC 4.12 10^6/uL (3.93-5.22); RDW 12.7 % (11.7-14.6); RDW-SD 42.4 fL; WBC 6.63 10^3/uL (4.4-10.8)
[2022-04-02 13:40] LABS: Iron 97 ug/dL (50-170); Total Iron Binding Capacity 330 ug/dL (250-450); Transferrin Sat 29 % (15-50)
[2022-04-02 13:55] LABS: Ferritin 121 ng/mL (8-252)
== END 2022-04-02 13:02 | disposition home or self-care (01) ==
LOC: LBO 13:03
PROVIDERS: PCP Nurse Practitioner; Visit Provider Obstetrics & Gynecology Maternal & Fetal Medicine
DX: D64.9 Anemia, unspecified (principal)
CPT/HCPCS: 36415; 85027; 82728; 83540; 83550

== ENCOUNTER 2022-04-29 12:05 | Emergency (ER) | payer BC, SELFPAY ==
[2022-04-29 12:21] VITALS: BP 117/77; PULSE 85; RESP 16; TEMP 36.8; O2SAT 96
[2022-04-29 15:06] VITALS: BP 117/77; PULSE 85; RESP 16; TEMP 36.8; O2SAT 96
[2022-04-29] MEDS: Acyclovir 400 MG TAB 800 MG PO (15:06)
[2022-04-30 16:54] LABS: HSV 1 DNA Result Negative (Negative); HSV 2 DNA Result Negative (Negative)
[2022-05-01 13:59] LABS: Chlamydia Result Negative (Negative); GC Result Negative (Negative)
== END 2022-04-29 15:08 | disposition home or self-care (01) ==
PROVIDERS: Emergency Provider Student in an Organized Health Care Education/Training Program; PCP Nurse Practitioner
DX: N94.89 Other specified conditions associated with female genital organs and menstrual cycle (principal)
CPT/HCPCS: 87491; 87529; 87591; 87480; 87510; 87660

== ENCOUNTER 2023-10-14 15:43 | Outpatient (REF) | payer BC, SELFPAY ==
--- NOTE | 2023-10-14 13:20 | PAPFT_PTH ---
PATIENT: Jennyfer Vieyra LOC: [facility] U#:[id number] AGE/SX: 33/F ROOM: RE10/14/[address]: Delicia Dawson DO : 1990 BED: DIS: 10/14/2023 SPEC #: [id number] RECD: 10/14/23 17:49 STATUS: TELLO REQ #: [id number] TATIANNA: 10/14/23 13:[address]: Delicia Dawson DEPT: [facility] Cytology RECD BY: Ana Acevedo ENTERED: 10/14/23 17:49 SP TYPE: PAPFT COMFORT DR: Anaid Reynoso APRN Tissues: 1 - CX/ENDOCX FOR PAP SMEARS Procedures: PAP THIN PREP/UVM Screening HPV DNA PROBE Comments: [id number]
== END 2023-10-14 15:44 | disposition home or self-care (01) ==
LOC: LBN 15:43
PROVIDERS: PCP Nurse Practitioner; Visit Provider Obstetrics & Gynecology
DX: Z11.51 Encounter for screening for human papillomavirus (HPV) (principal); Z01.419 Encounter for gynecological examination (general) (routine) without abnormal findings
CPT/HCPCS: 88142; 87624

== ENCOUNTER 2024-03-31 12:25 | Emergency (ER) | payer BC, SELFPAY ==
[2024-03-31 12:26] VITALS: BP 119/80; PULSE 102; RESP 16; TEMP 37.1; O2SAT 99
--- NOTE | 2024-03-31 12:39 | ED.GENADUL_ITS ---
Discharge Plan Disposition Patient Disposition: Home Condition: Stable Discharge Details Clinical Impression: Rash Primary Care Provider: Anaid Reynoso ED Provider: Chad Mariscal Home Meds and New Rx's Prescriptions: New prednisolone 15 mg/5 mL solution 60 mg PO DAILY 4 Days Qty: 80 0RF Continued cholecalciferol (vitamin D3) 25 mcg (1,000 unit) capsule 25 mcg PO DAILY triamcinolone acetonide 0.1 % cream 1 applic topical BID PRN (Reason: right hand rash) Qty: 80 1RF polyethylene glycol 3350 [Miralax] 17 gram/dose powder 17 g PO DAILY Qty: 119 5RF sulfamethoxazole-trimethoprim [Bactrim DS] 800-160 mg tablet 1 tab PO BID Qty: 6 0RF Rx Instructions: Extend current course to ten days. sertraline 50 mg tablet See Rx Instructions .ROUTE .COMPLEX Qty: 3 0RF Dose Instruction: TAKE ONE TABLET BY MOUTH EVERY DAY Rx Instructions: TAKE ONE TABLET BY MOUTH EVERY DAY alprazolam 0.25 mg tablet 1 tab PO PRN PRN Patient Comments: TAKE 1 TABLET BY MOUTH DAILY NEEDED FOR ANXIETY. Discharge Instructions Additional Instructions: You can take 25 to 50 mg of Benadryl (generic is diphenhydramine) every 6 hours as needed. You can also take 20 to 40 mg famotidine daily If not improving in a few days follow-up with your primary care provider. If you feel more ill, have difficulty breathing or severe abdominal pain or persistent vomiting return to the emergency department for reevaluation. HPI General Mode of arrival: ambulatory . Date/Time Provider Initiated Documentation: 03/31/24 12:26 . Limitations to Documentation: no limitations . Information obtained by: patient . History of Present Illness 33 year old F presents to the emergency department with the chief complaint of rash, described as moderate, Patient started experiencing this hour(s) (5) and it has been constant. No relieving factors improve symptom(s), No exacerbating factors reported . Patient notes no other symptoms.. Patient did receive the following treatments prior to arrival, none Related Data Home Medications ?Medication ?Instructions ?Recorded ?Confirmed polyethylene glycol 3350 17 17 g PO DAILY #119 grams 10/02/21 03/31/24 gram/dose oral powder (Miralax) alprazolam 0.25 mg tablet 1 tab PO PRN PRN 04/29/22 03/31/24 cholecalciferol (vitamin D3) 25 25 mcg PO DAILY 09/23/23 03/31/24 mcg (1,000 unit) capsule triamcinolone acetonide 0.1 % 1 applic topical BID PRN right 09/23/23 03/31/24 topical cream hand rash #80 grams sertraline 50 mg tablet See Rx Instructions .Route 02/25/24 03/31/24 .COMPLEX #3 tabs sulfamethoxazole 800 1 tab PO BID #6 tabs 03/29/24 03/31/24 mg-trimethoprim 160 mg tablet (Bactrim DS) prednisolone 15 mg/5 mL oral 60 mg (20 mL) PO DAILY 4 days #80 03/31/24 solution mL Previous Rx's ?Medication ?Instructions ?Recorded polyethylene glycol 3350 17 17 g PO DAILY #119 grams 10/02/21 gram/dose oral powder (Miralax) triamcinolone acetonide 0.1 % 1 applic topical BID PRN right 09/23/23 topical cream hand rash #80 grams sertraline 50 mg tablet See Rx Instructions .Route 02/25/24 .COMPLEX #3 tabs sulfamethoxazole 800 1 tab PO BID #6 tabs 03/29/24 mg-trimethoprim 160 mg tablet (Bactrim DS) prednisolone 15 mg/5 mL oral 60 mg (20 mL) PO DAILY 4 days #80 03/31/24 solution mL Allergies Allergy/AdvReac Type Severity Reaction Status Date / Time sulfamethoxazole (From Allergy Intermediate Skin Rash Verified 03/31/24 12:32 Bactrim) tazarotene (From Tazorac) Allergy Intermediate Swelling/Ed Verified 03/31/24 12:32 greg trimethoprim (From Bactrim) Allergy Intermediate Skin Rash Verified 03/31/24 12:32 General Stated Complaint: Allergic HERIBERTO: 3 Review of Systems Integumentary/Breasts Skin/Breast: Reports rash Exam Const General: no acute distress Orientation: alert [facility] Head: normal to inspection Ears: external ears normal General nose exam: external nose normal Mouth: moist mucous membranes Eyes General: appearance normal, both eyes and all related structures Neck Neck: normal visual inspection Resp Effort & Inspection: normal respiratory effort and able to speak in complete sentences Auscultation: clear to auscultation bilaterally Cardio Rate: regular rate GI Palpation: soft and nontender Skin Rashes: rashes noted Neuro General: patient alert and patient oriented x3 Extrem General: normal to inspection Psych Mental Status: mental status grossly normal Course Vital Signs Vital signs: Vital Signs Temperature 37.1 C 03/31/24 12:26 Pulse 102 H 03/31/24 12:26 Respiratory Rate 16 03/31/24 12:26 Blood Pressure 119/80 03/31/24 12:26 Pulse Oximetry 99 03/31/24 12:26 Temperature 37.1 C 03/31/24 12:26 Temperature Source Temporal Artery Scan 03/31/24 12:26 Pulse 102 H 03/31/24 12:26 Respiratory Rate 16 03/31/24 12:26 Respiratory Effort Normal, Non-Labored 03/31/24 12:31 Blood Pressure 119/80 03/31/24 12:26 Blood Pressure Position Sitting 03/31/24 12:26 Pulse Oximetry 99 03/31/24 12:26 Oxygen Delivery Method Room Air 03/31/24 12:26 Oxygen Flow Rate 0 03/31/24 12:26 Pain Level 6 03/31/24 12:26 Medical Decision Making 33-year-old female comes in with a complaint of an itchy rash on her torso and face starting this morning. She started Bactrim last for left lower leg cellulitis and had the rash starting today. Denies any abdominal pain, difficulty breathing. She has what appears to be hives on her abdomen and back as well as on her neck and face. There is no mucous membrane lesions, the uvula or tongue is not swollen she is speaking in full sentences in no distress. There is no skin sloughing. Clear lung sounds, soft nontender abdomen. Suspect drug reaction, will treat with prednisone, Benadryl and famotidine and reassess. No respiratory or GI symptoms to suggest anaphylaxis. She says that her left leg cellulitis is resolved and currently there is only a small what appears to be contusion that is about 1 x 1 cm on the left lateral leg. She did not hit the area has no tenderness there. Do not feel further antibiotics are indicated and she can stop the Bactrim Patient stable, eating without any difficulty. Rashes significantly improved only has small amount of hives on the abdomen now. Still no respiratory or GI s ymptoms. Still no mucous membrane lesions. She is stable for discharge, I will provide a short course of prednisolone as she has trouble swallowing pills, she will follow-up with her PCP if needed and return precautions given Differential Diagnosis Differential Diagnosis: allergic reaction, hives Quality:SDOH Health Related Social Needs: No Data to Display ON LICENSE OF [facility] All Active Problems (Updated 03/31/24 @ 13:58 by Chad Mariscal MD) Rash (Acute) Attention deficit hyperactivity disorder (ADHD) evaluation (Acute) Chronic constipation (Acute) IBS (irritable bowel syndrome) (Chronic) 10/17/23 [facility], [place] Smart NP Dyspareunia in female (Acute) PCOS (polycystic ovarian syndrome) (Acute) Anxiety (Chronic) Medical History Diarrhea, unspecified (~10/2023) 10/17/23 [facility] - labs ordered Left breast lump Constipation History of premature rupture of membranes Miscarriage, threatened, early Breast mass R sided, nonpalpable s/p stopping , occurred when nursing first child, now recurred. History of miscarriage Hypokalemia Surgical History H/O abdominal supracervical subtotal hysterectomy 01/30/22 at [facility] [place]. Supracervical hysterectomy and salpingectomy for retaine POC and possible placenta accreta after successful JOSLYN with delivery. Status post emergency hysterectomy 01/28/22. . M. 1420gm. Hannah. Immediate D&C. 01/30/22. retained POC. Endometritis. Unsuccessful attempt at D&C and uterine artery embolization. Supracervical hysterectomy and salpingectomy. S/P hysterectomy (~01/2022) Previous delivery affecting , antepartum H/O hand surgery left hand History of wisdom tooth extraction H/O section (~02/2019) Family History Paternal Grandfather Cancer lung Maternal Grandmother Cancer lung Lemierre syndrome Maternal Aunt Colon cancer Paternal Grandfather Lung cancer Paternal Grandmother Heart disease Mother Anxiety Father Anxiety Prediabetes Hypertension Social History Smoking/Tobacco Use Status: Never Second Hand Exposure: No Smoking risk assessment performed?: Yes Alcohol Intake: current Alcohol Intake frequency: 0-2 drinks per day Counseling given: No Drug use: Never Substance use type: does not use Counseling given: No Adopted: No Caregiver/Support person: No Foster care: No Household members: spouse, children and other Details: NabeelJavadChadShanell s- Eli Housing: house Number of Children: 2 number of grandchildren: 0 Communication Needs: None Education Level: college Details: Bachelor's Degree-nutrition [employer] Do you need help understanding health information?: Never 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/ Pets and animals: No Sexually active: Yes Do you think of yourself as: straight/heterosexual Current gender identity: female What is your relationship status?: How often do you talk on the phone with friends or family?: twice per week How often do you get together with friends or relatives?: never Do you belong to any clubs or organized social groups?: yes Panel score (0-1 are the most socially isolated patients): 2 What type of physical activity do you participate in: weight lifting and other Details: Stairs Duration: < 15 minutes/day Frequency: 3-4 times per week Tracy/Church: [employer] Special tracy needs: Yes (No control. Lise Ovulation Method (NFP)) Seatbelt use: always Helmet use: Yes Helmet use: always Drive intox or ride w/intox funeral limousine driver: No Working smoke detector in home: Yes Do you feel safe at home: Yes Do you feel safe in your relationship?: Yes Additional Social history: Patient and relocated from [place] secondary to housing costs. They purchased a home. She works remotely from home. He has [employer] channel. History History 2 Para 1 Hx # Term Pregnancies 0 Multiple births 0 Hx # Pregnancies 1 Ectopic pregnancies 0 AB induced 0 Hx Number of Living Children 1 AB spontaneous 1 Past Pregnancies Del. Date GA/Weeks # Preg Succ Route Wgt Sex Labor Lgth Anesth esia Location Prov Complic 02/04/19 33 No 1445.826 g Male [place], [place] 03/13/21 6 Delivery Date: 02/04/19 Last Updated by: Libby Lawrence CNM PPROM, PTL, breech. separation of membranes from uterine lining Delivery Date: 03/13/21 Last Updated by: Rose Mariscal NP SAB
[2024-03-31] MEDS: prednisoLONE SOD PHOS. Soln. 3 MG/ML 50 MG PO (12:52)
[2024-03-31] MEDS: diphenhydrAMINE Elixir 25 MG/10 ML CUP PO (12:53)
[2024-03-31 12:59] VITALS: PULSE 96; O2SAT 97
[2024-03-31 13:50] VITALS: BP 110/64; PULSE 94; RESP 14; O2SAT 100
[2024-03-31 14:20] VITALS: BP 104/62; PULSE 93; RESP 15; TEMP 36.4; O2SAT 98
== END 2024-03-31 14:20 | disposition home or self-care (01) ==
PROVIDERS: Emergency Provider Emergency Medicine; PCP Nurse Practitioner
DX: R21 Rash and other nonspecific skin eruption (principal)
CPT/HCPCS: 99283; 99284

== ENCOUNTER 2024-08-01 15:56 | Emergency (ER) | payer MEDICAID, SELFPAY ==
[2024-08-01 16:05] VITALS: BP 118/81; PULSE 84; RESP 20; TEMP 36.1; O2SAT 98
--- NOTE | 2024-08-01 16:20 | W.ED.GENAD ---
Discharge Plan Disposition Patient Disposition: Home Condition: Stable Discharge Details Clinical Impression: Rash Primary Care Provider: Anaid Reynoso ED Provider: Chad Mariscal Home Meds and New Rx's Prescriptions: New prednisone 20 mg tablet 60 mg PO DAILY 4 Days Qty: 12 0RF Continued cholecalciferol (vitamin D3) 25 mcg (1,000 unit) capsule 25 mcg PO DAILY triamcinolone acetonide 0.1 % cream 1 applic topical BID PRN (Reason: right hand rash) Qty: 80 1RF polyethylene glycol 3350 [Miralax] 17 gram/dose powder 17 g PO DAILY Qty: 119 5RF sertraline 50 mg tablet See Rx Instructions .ROUTE .COMPLEX Qty: 90 3RF Dose Instruction: TAKE ONE TABLET BY MOUTH EVERY DAY Rx Instructions: TAKE ONE TABLET BY MOUTH EVERY DAY alprazolam 0.25 mg tablet 1 tab PO PRN PRN Patient Comments: TAKE 1 TABLET BY MOUTH DAILY NEEDED FOR ANXIETY. Discharge Instructions Additional Instructions: He can continue taking Benadryl 25 to 50 mg every 4-6 hours as needed. If not improving this week follow-up with your primary care provider. You can also take a daily Claritin or Zyrtec. If you feel more ill or have new symptoms such as persistent vomiting or severe shortness of breath return to the emergency department for reevaluation HPI General Mode of arrival: ambulatory. Date/Time Provider Initiated Documentation: 08/01/24 16:04. Limitations to Documentation: no limitations. Information obtained by: patient. History of Present Illness 34 year old F presents to the emergency department with the chief complaint of rash, described as moderate, Patient started experiencing this day(s) (1) and it has been constant. No relieving factors improve symptom(s), No exacerbating factors reported . Patient notes no other symptoms.; denies chest pain, fever/chills, nausea/vomiting and shortness of breath. Patient did receive the following treatments prior to arrival, none Related Data Home Medications ?Medication ?Instructions ?Recorded ?Confirmed polyethylene glycol 3350 17 17 g PO DAILY #119 grams 10/02/21 08/01/24 gram/dose oral powder (Miralax) alprazolam 0.25 mg tablet 1 tab PO PRN PRN 04/29/22 08/01/24 cholecalciferol (vitamin D3) 25 25 mcg PO DAILY 09/23/23 08/01/24 mcg (1,000 unit) capsule triamcinolone acetonide 0.1 % 1 applic topical BID PRN right 09/23/23 08/01/24 topical cream hand rash #80 grams sertraline 50 mg tablet See Rx Instructions .Route 06/01/24 08/01/24 .COMPLEX #90 tabs prednisone 20 mg tablet 60 mg (3 x 20 mg) PO DAILY 4 days 08/01/24 #12 tabs Previous Rx's ?Medication ?Instructions ?Recorded polyethylene glycol 3350 17 17 g PO DAILY #119 grams 10/02/21 gram/dose oral powder (Miralax) triamcinolone acetonide 0.1 % 1 applic topical BID PRN right 09/23/23 topical cream hand rash #80 grams sertraline 50 mg tablet See Rx Instructions .Route 06/01/24 .COMPLEX #90 tabs prednisone 20 mg tablet 60 mg (3 x 20 mg) PO DAILY 4 days 08/01/24 #12 tabs Allergies Allergy/AdvReac Type Severity Reaction Status Date / Time sulfamethoxazole (From Allergy Intermediate Skin Rash Verified 08/01/24 16:10 Bactrim) tazarotene (From Tazorac) Allergy Intermediate Swelling/Ed Verified 08/01/24 16:10 greg trimethoprim (From Bactrim) Allergy Intermediate Skin Rash Verified 08/01/24 16:10 General Stated Complaint: RashLesion HERIBERTO: 4 Review of Systems All systems reviewed & are unremarkable except as noted in HPI and below Constitutional Constitutional: Denies chills, Denies fever(s) and Denies weakness Cardiovascular Cardiovascular: Denies chest pain and Denies dyspnea Respiratory Respiratory: Denies cough and Denies dyspnea Gastrointestinal Gastrointestinal: Denies abdominal pain, Denies nausea and Denies vomiting Integumentary/Breasts Skin/Breast: Reports rash Neurologic Neurologic: Denies weakness Psychiatric Psychiatric: Denies depression Exam Const General: no acute distress Orientation: alert HENMT Head: normal to inspection Ears: external ears normal General nose exam: external nose normal Mouth: moist mucous membranes Eyes General: appearance normal, both eyes and all related structures Neck Neck: normal visual inspection Resp Effort & Inspection: normal respiratory effort and able to speak in complete sentences Auscultation: clear to auscultation bilaterally Cardio Rate: regular rate GI Palpation: soft and nontender Skin Rashes: rashes noted Neuro General: patient alert and patient oriented x3 Extrem General: normal to inspection Psych Mental Status: mental status grossly normal Course Vital Signs Vital signs: Vital Signs Temperature 36.1 C L 08/01/24 16:05 Pulse 84 08/01/24 16:05 Respiratory Rate 20 08/01/24 16:05 Blood Pressure 118/81 08/01/24 16:05 Pulse Oximetry 98 08/01/24 16:05 Temperature 36.1 C L 08/01/24 16:05 Pulse 84 08/01/24 16:05 Respiratory Rate 20 08/01/24 16:05 Blood Pressure 118/81 08/01/24 16:05 Blood Pressure Position Sitting 08/01/24 16:05 Pulse Oximetry 98 08/01/24 16:05 Oxygen Delivery Method Room Air 08/01/24 16:05 Oxygen Flow Rate 0 08/01/24 16:05 Medical Decision Making 34-year-old female with a history of IBS, PCOS, ADHD who comes in with a rash. She says that last night she has noticed that she had what looked like hives on her torso and legs and that spread to her upper torso and neck. She denies any GI or respiratory symptoms. No fevers or chills. She says that she started a new multivitamin otherwise no new foods or medications. She is well-appearing on exam. She has multiple areas of erythema in various sizes that are not raised and slime and are not warm consistent with urticaria. She has no mucous membrane lesions. Given the lack of GI and respiratory symptoms I doubt anaphylaxis, will treat with prednisone and she already took Benadryl and also give famotidine and reassess. Patient stable reading a book on reassessment still has no GI or respiratory symptoms. Hives have slightly improved. I will place her on a short course of prednisone and advised to use Benadryl and also can take a daily Claritin or Zyrtec. She will follow-up with her PCP if not improving and return precautions given Differential Diagnosis Differential Diagnosis: Hives, allergic reaction Quality:SDOH Health Related Social Needs: No Data to Display PFSH All Active Problems (Updated 08/01/24 @ 17:33 by Chad Mariscal MD) Rash (Acute) Attention deficit hyperactivity disorder (ADHD) evaluation (Acute) Chronic constipation (Acute) IBS (irritable bowel syndrome) (Chronic) 6/14/24 [facility], [place] Smart NP Dyspareunia in female (Acute) PCOS (polycystic ovarian syndrome) (Acute) Anxiety (Chronic) Medical History Diarrhea, unspecified (~10/2023) 10/17/23 [facility] - labs ordered Left breast lump Constipation History of premature rupture of membranes Miscarriage, threatened, early Breast mass R sided, nonpalpable s/p stopping , occurred when nursing first child, now recurred. History of miscarriage Hypokalemia Surgical History H/O abdominal supracervical subtotal hysterectomy 01/30/22 at [facility]. Supracervical hysterectomy and salpingectomy for retaine POC and possible placenta accreta after successful JOSLYN with delivery. Status post emergency hysterectomy 01/28/22. . M. 1420gm. Hannah. Immediate D&C. 01/30/22. retained POC. Endometritis. Unsuccessful attempt at D&C and uterine artery embolization. Supracervical hysterectomy and salpingectomy. S/P hysterectomy (~01/2022) DH Previous delivery affecting , antepartum H/O hand surgery left hand History of wisdom tooth extraction H/O section (~02/2019) Family History Paternal Grandfather Cancer lung Maternal Grandmother Cancer lung Lemierre syndrome Maternal Aunt Colon cancer Paternal Grandfather Lung cancer Paternal Grandmother Heart disease Mother Anxiety Father Anxiety Prediabetes Hypertension Social History Smoking/Tobacco Use Status: Never Second Hand Exposure: No Smoking risk assessment performed?: Yes Alcohol Intake: current Alcohol Intake frequency: 0-2 drinks per day Counseling given: No Drug use: Never Substance use type: does not use Counseling given: No Adopted: No Caregiver/Support person: No Foster care: No Household members: spouse, children and other Details: Shanell Stack s- Eli Housing: house Number of Children: 2 number of grandchildren: 0 Communication Needs: None Education Level: college Details: Bachelor's Degree-nutrition [employer] Do you need help understanding health information?: Never 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 Sexually active: Yes Do you think of yourself as: straight/heterosexual Current gender identity: female What is your relationship status?: How often do you talk on the phone with friends or family?: twice per week How often do you get together with friends or relatives?: never Do you belong to any clubs or organized social groups?: yes Panel score (0-1 are the most socially isolated patients): 2 What type of physical activity do you participate in: weight lifting and other Details: Stairs Duration: < 15 minutes/day Frequency: 3-4 times per week Tracy/Confucianist: Religion Special tracy needs: Yes (No control. Lise Ovulation Method (NFP)) Seatbelt use: always Helmet use: Yes Helmet use: always Drive intox or ride w/intox waste collection driver: No Working smoke detector in home: Yes Do you feel safe at home: Yes Do you feel safe in your relationship?: Yes Additional Social history: Patient and relocated from [place] secondary to housing costs. They purchased a home. She works remotely from home. He has [employer] channel. History History 2 Para 1 Hx # Term Pregnancies 0 Multiple births 0 Hx # Pregnancies 1 Ectopic pregnancies 0 AB induced 0 Hx Number of Living Children 1 AB spontaneous 1 Past Pregnancies Del. Date GA/Weeks # Preg Succ Route Wgt Sex Labor Lgth Anesthesia Location [facility] 02/04/19 35 No 1445.826 g Male [place], [place] 03/13/21 6 Delivery Date: 02/04/19 Last Updated by: Libby Lawrence CNM PPROM, PTL, breech. separation of membranes from uterine lining Delivery Date: 03/13/21 Last Updated by: Rose WINSTON Have you Been Recently Intoxicated or Drunk Within the Last 30 days?: No Have you Ever Experienced Previous Episodes of Alcohol Withdrawal?: No Have you ever Experienced Withdrawal Seizures?: No Have you ever Experienced Delirium Tremens(DT)s?: No Have you ever undergone Alcohol Rehabilitation Treatment (i.e, inpt ot outpatient treatment programs)?: No Have you ever Experienced Blackouts?: No Have you ever Combined Alcohol with other Downers within the last 90 days?: No Have you ever Combined Alcohol with any other Substance of Abuse during the last 90 days?: No Positive Blood Alcohol level on Presentation? [PCS.BAL]: No Evidence of Increased Autonomic Activity (i.e. HR>120, tremor, sweating, agitation, nausea)?: No Result: 0
[2024-08-01] MEDS: predniSONE 20 MG TAB 60 MG PO (16:31)
[2024-08-01] MEDS: Famotidine 20 MG TAB PO (16:31)
[2024-08-01 17:51] VITALS: BP 116/69; PULSE 82; RESP 16; O2SAT 98
== END 2024-08-01 17:55 | disposition home or self-care (01) ==
PROVIDERS: Emergency Provider Emergency Medicine; PCP Nurse Practitioner
DX: R21 Rash and other nonspecific skin eruption (principal)
CPT/HCPCS: 99283; J7512

== ENCOUNTER 2025-01-07 15:10 | Outpatient (REF) | payer MEDICAID, SELFPAY | END 2025-01-07 15:11 | disposition home or self-care (01) | LOC: LBN 15:10 | PROVIDERS: PCP Nurse Practitioner; Visit Provider Family Medicine | DX: R30.0 Dysuria (principal) | CPT/HCPCS: 87077; 87086 ==